=== PATIENT | female | born 1975 | race Caucasian/White ===

== ENCOUNTER → 2019-11-01 | Outpatient (CLI) | payer OTHER ==
[~2019-11-01] MED LIST: ALBU90OI INH; AMOX500 PO; AMOXICILLIN; ANU MED PR; Bactrim Ds Tab1 EACH PO; CEPH500 PO; CODGUAEL PO; HYDACE5; HYDACE5 PO; HYDMOR4 PO; HYDR25SUP PR; IBUP800 PO; MUPI2TO TOP; Miralax17 GM PO; Norco 5-325 Ta1 EACH PO; OXYACE7.5T PO; PROM25 PO; RXOXYACE PO; Veetids 500500 MG PO; Zantac150 MG PO; [UNRECOGNIZED DRUG - OTHER]
[2019-11-02 11:40] LABS: Candida species (DNA Probe) Negative (NEGATIVE); G. vaginalis (DNA Probe) Positive (NEGATIVE); T. vaginalis (DNA Probe) Negative (NEGATIVE)
== END | disposition home or self-care (01) ==
LOC: LAB SHORT 12:10 → LAB 12:10
PROVIDERS: Obstetrics & Gynecology
DX: A59.00 Urogenital trichomoniasis, unspecified (principal)
CPT/HCPCS: 87480; 87510; 87660

== ENCOUNTER 2021-04-20 05:22 | Emergency (ER) | payer OTHER | END 2021-04-20 05:35 | disposition left against medical advice (07) | LOC: ER 05:22 | DX: Z53.21 Procedure and treatment not carried out due to patient leaving prior to being seen by health care provider (principal) ==

== ENCOUNTER → 2021-10-11 | Outpatient (CLI) | payer OTHER ==
[2021-10-12 13:14] LABS: Candida species (DNA Probe) Negative (NEGATIVE); G. vaginalis (DNA Probe) Positive (NEGATIVE); T. vaginalis (DNA Probe) Negative (NEGATIVE)
== END | disposition home or self-care (01) ==
LOC: LAB SHORT 17:28 → LAB 17:28
PROVIDERS: Advanced Practice Midwife
DX: Z01.419 Encounter for gynecological examination (general) (routine) without abnormal findings (principal); Z11.3 Encounter for screening for infections with a predominantly sexual mode of transmission; N76.0 Acute vaginitis
CPT/HCPCS: 87480; 87510; 87660

== ENCOUNTER 2022-05-11 18:37 | Inpatient (IN) | payer OTHER ==
[~2022-05-11] VITALS: Ht 157.5 cm; Wt 73.1 kg
[2022-05-11 19:02] LABS: BASOPHILS ABSOLUTE AUTO 0.06 K/mm3 (0.00-0.23); BASOPHILS PERCENT AUTO 0 % (0-2); EOSINOPHILS ABSOLUTE AUTO 0.07 K/mm3 (0.00-0.68); EOSINOPHILS PERCENT AUTO 1 % (0-6); Hematocrit 39.4 % (33.0-51.0); Hemoglobin 12.9 g/dL (11.5-16.0); IMMATURE GRAN ABSOLUTE AUTO 0.07 K/mm3 (0.00-0.10); IMMATURE GRAN PERCENT AUTO 1 % (0-1); LYMPHOCYTES ABSOLUTE AUTO 1.15 K/mm3 (0.84-5.20); LYMPHOCYTES PERCENT AUTO 8 % (21-46); MONOCYTES ABSOLUTE AUTO 0.84 K/mm3 (0.16-1.47); MONOCYTES PERCENT AUTO 6 % (4-13); Mean Corpuscular HGB 29.7 pg (26.0-34.0); Mean Corpuscular HGB Conc 32.7 g/dL (31.5-36.5); Mean Corpuscular Volume 91 fL (80-100); Mean Platelet Volume 10.2 fL (9.1-12.4); NEUTROPHILS ABSOLUTE AUTO 12.15 K/mm3 (1.96-9.15); NEUTROPHILS PERCENT AUTO 85 % (41-73); Platelet Count 369 K/mm3 (150-400); RDW Coefficient Variation 13.9 % (11.7-14.2); RDW Standard Deviation 46.6 fL (35.1-46.3); Red Blood Cell Count 4.35 M/mm3 (3.80-5.20); White Blood Cell Count 14.34 K/mm3 (4.00-11.30)
[2022-05-11 19:13] LABS: Albumin, Blood 3.4 g/dL (3.4-5.0); Albumin/Globulin Ratio 0.9 (0.8-1.8); Bun/Creatinine Ratio 14.7 (12.0-20.0); Calcium, Blood 8.6 mg/dL (8.5-10.1); Creatinine, Blood 0.54 mg/dL (0.40-1.00); Globulin, Blood 3.7 g/dL (2.2-4.0); Potassium, Blood 3.8 mmol/L (3.5-5.5); Total Protein, Blood 7.1 g/dL (6.4-8.2)
[2022-05-11 20:31] LABS: Source, Urine Clean Catch
[2022-05-11 20:36] LABS: Bilirubin, Urine Neg (Neg); Blood, Urine Neg (Neg); Glucose Qualitative, Urine Neg (Neg); Ketones, Urine 1+ (Neg); Leukocyte Esterase, Urine Neg (Neg); Nitrite, Urine Neg (Neg); Protein, Urine 1+ (Neg); Urobilinogen, Urine NORM (Normal)
[2022-05-11 20:41] LABS: Appearance, Urine Hazy (Clear); Color, Urine Yellow (P-Yellow)
[2022-05-11 20:45] LABS: Amorphous Mod (0-Heavy); Bacteria Few /hpf; Mucus Mod (0-Heavy); Red Blood Cells, Urine Not Seen /hpf (0-2); Squamous Epithelial Cells Mod /hpf (Few); White Blood Cells, Urine Not Seen /hpf (0-5)
--- NOTE | 2022-05-12 05:59 | NUR ---
PT NEW ADMIT THIS SHIFT FROM ER FOR DX OF SEPTIC SHOCK AND COLITIS. PT'S MAP HAS MAINTAINED GREATER THAN 65 WITHOUT NEED TO INITIATE ORDERED LEVOPHED GTT, CALL WAS PLACED TO DR BERNAL AFTER PT ARRIVAL TO DISCUSS PRESSURES, HEART RATE, AND TO CLARIFY FLUID ORDERS, THIRD SALINE BOLUS WAS ORDERED TO BE HELD AND PT WAS MADE PCU STATUS. SHE STATED THAT SHE WAS TIRED AND HUNGRY ON ARRIVAL TO ICU AND REQUESTED TO JUST BE ALLOWED TO SLEEP. SHE IS NOTED TEARFUL ON AWAKENING FOR ASSESSMENTS HOWEVER RATES HER PAIN "FINE" NO NUMBERS ARE PROVIDED WHEN REQUESTED. WILL CONT TO MONITOR AND REPORT OFF TO NEXT SHIFT.
--- NOTE | 2022-05-12 07:45 | NUR ---
INITIAL ASSESSMENT PATIENT SLEEPING UPON ENTERING ROOM. PATIENT ALERT AND ORIENTED X 4, AFEBRILE. DENIES ABD PAIN. NO OTHER COMPLAINTS OF PAIN. PATIENT FLAT AND WITHDRAWN. PATIENT SATTING 90% AND GREATER ON RA. PATIENT IN SR, HR IN THE 70S. BP 111/72. ABD MODERATELY DISTENDED, SOFT, TENDER, WITH NORMOACTIVE BOWEL SOUNDS NOTED. WNL. SKIN WNL. NS INFUSING AT 150 MLS/ HOUR. BED LOW, CALL LIGHT IN REACH. WILL CONTINUE TO MONITOR T/O SHIFT.
[2022-05-12 10:06] LABS: Hematocrit 31.5 % (33.0-51.0); Hemoglobin 10.1 g/dL (11.5-16.0); Mean Corpuscular HGB Conc 32.1 g/dL (31.5-36.5); Mean Corpuscular Volume 94 fL (80-100); Mean Platelet Volume 10.3 fL (9.1-12.4); Platelet Count 287 K/mm3 (150-400); RDW Coefficient Variation 14.2 % (11.7-14.2); RDW Standard Deviation 47.6 fL (35.1-46.3); Red Blood Cell Count 3.37 M/mm3 (3.80-5.20); White Blood Cell Count 6.82 K/mm3 (4.00-11.30)
--- NOTE | 2022-05-12 10:17 | NUR ---
PATIENT HAS REMAINED MOSTLY SLEEPING THIS MORNING. NO COMPLAINTS OF ABD PAIN. VITALS STABLE. PATIENT WILL BE TRANSFERRING TO PCU ROOM 6 SHORTLY.
[2022-05-12 10:23] LABS: Bun/Creatinine Ratio 8.6 (12.0-20.0); Calcium, Blood 7.2 mg/dL (8.5-10.1); Creatinine, Blood 0.58 mg/dL (0.40-1.00); Potassium, Blood 3.4 mmol/L (3.5-5.5)
--- NOTE | 2022-05-12 10:45 | NUR ---
PATIENT SUCCESSFULLY TRANSFERRED TO PCU. ALL BELONGINGS SENT WITH PATIENT.
--- NOTE | 2022-05-12 11:10 | NUR ---
UPDATE ASSUMED CARE. PT ALERT AND ORIENTED X4. HR NSR 70'S. BP LOW SEE VITAL SIGNS. PT SATTING >90% ON RA. PT DENIES ANY PAIN. ABD SOFT, BUT TENDER ON PALPATION. PT STATES SHE IS HUNGRY. PT ABLE TO STAND AND AMBULATE WITH MINIMAL ASSISTANCE TO BATHROOM TO VOID. DR. PARKINSON IN IMMEDIATELY AFTER ARRIVAL TO UNIT. ORDERS TO STOP IV FLUIDS AT THIS TIME AND CLOSELY MONITOR BP. PT'S EYES PUFFY AND SHE STATES SHE "CAN'T HARDLY KEEP OPEN". PT ORIENTED TO NEW ROOM AND UNIT. WILL CONTINUE TO MONITOR CLOSELY
--- NOTE | 2022-05-12 11:30 | NUR ---
UPDATE BP NOTED TO BE SIGNIFICANTLY DIFFERENT BETWEEN LEFT ARM AND RIGHT ARM. BP ON LEFT 75/63, AND BP ON RIGHT ARM IS 104/81. DR. PARKINSON CALLED AND NOTIFIED.
[2022-05-12 11:40] LABS: U Amphetamine Screen DETECTED; U Barbituate Screen Not Detected; U Benzodiazapine Screen Not Detected; U Buprenorphine Screen Not Detected; U Cannabinoids Screen Not Detected; U Cocaine Screen Not Detected; U Methadone Screen Not Detected; U Methamphetamine Screen DETECTED; U Opiates Screen Not Detected; U Oxycodone Screen Not Detected; U Phencyclidine Screen Not Detected; U Propoxyphene Screen Not Detected
--- NOTE | 2022-05-12 14:43 | NUR ---
UPDATE PT YELLING OUT THAT HER ARM IS HURTING WHERE THE POTASSIUM IS INFUSING. PT DEMANDS THIS RN STOPS THE INFUSION. 75ML OF POTASSIUM INFUSED. POTASSIUM DISCONNECTED. PT PROVIDED WARM BLANKET. WILL CONTINUE TO MONITOR
--- NOTE | 2022-05-12 17:13 | NUR ---
SHIFT SUMMARY PT REMAINS ALERT AND ORIENTED X4. VS STABLE. PT DENIES ANY PAIN. PT ABLE TO AMBULATE TO BATHROOM NEEDED WITH SBA. PT ADVANCED TO FULL LIQUIDS AND TOLERATED WELL. PT REQUESTING REGULAR DIET FOR DINNER. WILL CONTINUE TO MONITOR AND REPORT TO ONCOMING PATTY
--- NOTE | 2022-05-13 06:25 | NUR ---
PT SIGNED OUT AMA AT 5:28AM. RISK FACTORS, POSSIBLITY OF EXPLAINED TO PT. SHE STATED SHE WANTED TO LEAVE. DOCTOR MADE AWARE AND SECURITY WALKED PT OUT.
--- NOTE | 2022-05-13 06:52 | NUR ---
PT LEFT AMA PT AGGITATED WITH PRIMARY RN REGARDING PAIN MEDICATION TREATMENT FOR HEMORRHOID PAIN. NOTIFIED REGARDING PT'S PAIN. SEE EMAR FOR ORDERS. PT YELLING SHE IS "LEAVING, NURSING STAFF IS STUPID!" SECURITY CALLED, NURSING EYEWEAR CONSULTANT CALLED, MD NOTIFIED. NURSING EYEWEAR CONSULTANT AND PRIMARY RN REMOVED IV'S. SECURITY IN ROOM DURING THIS TIME. AMA PAPERWORK PROVIDED. PT REFUSED TO SIGN. 2 RN SIGNED. PT INFORMED OF RISKS OF LEAVING AMA AND ENCOURAGED TO STAY TO RECEIVE TREATMENT. PT REFUSING. ESCORTED OUT OF BUILDING BY SECURITY. JOSEPH ARREDONDO.
== END 2022-05-13 06:30 | disposition left against medical advice (07) | DRG 872 ==
LOC: ER 18:37 → ICUW 23:42 → ER 05-12 00:34 → ICUW 05-12 00:34 → PCU 05-12 10:45 → ICUW 05-12 10:45 → PCU 05-13 06:30
PROVIDERS: Internal Medicine; Student in an Organized Health Care Education/Training Program; ADMIT Internal Medicine
DX: A41.9 Sepsis, unspecified organism (principal); R65.20 Severe sepsis without septic shock; K52.89 Other specified noninfective gastroenteritis and colitis; I95.9 Hypotension, unspecified; F15.10 Other stimulant abuse, uncomplicated; F17.210 Nicotine dependence, cigarettes, uncomplicated; E87.6 Hypokalemia; K64.4 Residual hemorrhoidal skin tags; K59.00 Constipation, unspecified; Z98.51 Tubal ligation status; Z98.890 Other specified postprocedural states
CPT/HCPCS: 36415; 74177; 76705; 80048; 80053; 81001; 81025; 82272; 83605; 83690; 85025; 85027; 87040; 93005; 93010; 96361; 96365-59; 96375; 99285-25; A9270; J0696; J1885; J2405; J3010; J3480; J7030; J7050; J7060; Q9967

== ENCOUNTER → 2024-04-15 | Outpatient (CLI) | payer OTHER ==
[~2024-04-15] MED LIST changes: +FEROSUL325 M1 PO; +METR500; +VITAMIN D-32000 UNIT PO
[2024-04-15 14:03] LABS: Source, Urine Clean Catch
[2024-04-15 14:50] LABS: Appearance, Urine Hazy (Clear); Bilirubin, Urine Neg (Neg); Blood, Urine Neg (Neg); Color, Urine Yellow (P-Yellow); Glucose Qualitative, Urine Neg (Neg); Ketones, Urine 1+ (Neg); Leukocyte Esterase, Urine Neg (Neg); Nitrite, Urine Neg (Neg); Protein, Urine 2+ (Neg); Specific Gravity, Urine 1.025 (1.003-1.022); Urobilinogen, Urine NORM (Normal)
[2024-04-15 15:08] LABS: White Blood Cells, Urine 0-2 /hpf (0-5)
[2024-04-15 15:09] LABS: Amorphous Light (0-Heavy); Bacteria Few /hpf; Red Blood Cells, Urine 0-2 /hpf (0-2); Squamous Epithelial Cells Mod /hpf (Few)
[2024-04-16 07:59] LABS: Candida Group, PCR NOT DETECTED (NOT DETECT); Candida glabrata-krusei, PCR NOT DETECTED (NOT DETECT)
[2024-04-16 08:38] LABS: Bacterial Vaginosis PCR Positive (NEGATIVE)
[2024-04-18 06:39] LABS: C. TRACHOMATIS BY TMA,THINPREP Negative (Negative); N. GONORRHOEAE BY TMA,THINPREP Negative (Negative); SPECIMEN SOURCE Cervical
[2024-04-26 09:38] LABS: HPV HIGH RISK BY TMA Not Detected; HPV SOURCE Cervical
== END | disposition home or self-care (01) ==
LOC: LAB 13:59 → LAB SHORT 13:59
PROVIDERS: Obstetrics & Gynecology
DX: Z11.3 Encounter for screening for infections with a predominantly sexual mode of transmission (principal); Z01.419 Encounter for gynecological examination (general) (routine) without abnormal findings; N76.0 Acute vaginitis; R30.0 Dysuria
CPT/HCPCS: 36415; 80053; 81001; 81515; 82728; 83540; 83550; 84443; 85025; 86592; 86803; 87340; 87389; 87491; 87591; 87624; G0123

== ENCOUNTER 2024-10-11 08:55 | Day surgery (SDC) | payer OTHER ==
[~2024-10-11] VITALS: Ht 157.5 cm; Wt 76.5 kg
[2024-10-11] MEDS ORDERED: ATOR10 (10:30)
[2024-10-11] MEDS ORDERED: ZOLOFT50 MG (10:30)
[2024-10-11] MEDS ORDERED: COLACE100 MG (10:30)
[2024-10-11] MEDS ORDERED: NAPROXEN500 MG (10:31)
[2024-10-11 12:09] VITALS: BP 100/71
== END 2024-10-11 12:14 | disposition home or self-care (01) ==
LOC: ORSCSDS 08:55
PROVIDERS: Surgery
PROC: 0DBN8ZX Excision of Sigmoid Colon, Via Natural or Artificial Opening Endoscopic, Diagnostic (ICD-10-PCS; principal; 2024-10-11 10:30)
PROC: 0DB68ZX Excision of Stomach, Via Natural or Artificial Opening Endoscopic, Diagnostic (ICD-10-PCS; principal; 2024-10-11 10:30)
PROC: 0DB48ZX Excision of Esophagogastric Junction, Via Natural or Artificial Opening Endoscopic, Diagnostic (ICD-10-PCS; principal; 2024-10-11 10:30)
DX: K92.1 Melena (principal); K64.4 Residual hemorrhoidal skin tags; K64.8 Other hemorrhoids; K63.5 Polyp of colon; Z86.0100 Personal history of colon polyps, unspecified; K62.89 Other specified diseases of anus and rectum; K29.70 Gastritis, unspecified, without bleeding; K20.90 Esophagitis, unspecified without bleeding; F17.210 Nicotine dependence, cigarettes, uncomplicated; F41.9 Anxiety disorder, unspecified; F32.A Depression, unspecified; E78.5 Hyperlipidemia, unspecified; Z79.899 Other long term (current) drug therapy
CPT/HCPCS: 88305; 88312; 88341; 88342; J2704; J7120

== ENCOUNTER 2024-11-15 06:14 | Day surgery (SDC) | payer OTHER ==
[~2024-11-15] VITALS: Ht 157.5 cm; Wt 75.6 kg
[2024-11-15] VITALS (7 sets, daily range): BP systolic 97–130; BP diastolic 67–85
[~2024-11-15 06:14] MED LIST changes: +ATOR10; +COLACE100 MG; +ESTRADIOL (TWI1 EACH TOP; +NAPR500 PO; +NICOTINE LOZENGE4 MG BC; +Nicoderm Cq1 EAC1 TOP; +OMEP20ER PO; +PROG100 PO; +SERT50 PO
[2024-11-15] MEDS ORDERED: Ampicillin Sod/Sulbactam Sod 3 GM in NS 100 ML IV SCH (06:20)
[2024-11-15] MEDS ORDERED: ATOR10 PO (06:27)
[2024-11-15] MEDS ORDERED: BISA10S (06:27)
[2024-11-15] MEDS ORDERED: Bacitracin Zinc Oint 1GRAM UD Packet ONE (07:16)
[2024-11-15] MEDS ORDERED: Lidocaine 1%-Epineph 1:200000 30 ML SDV ONE ×2 (07:16→08:24)
[2024-11-15] MEDS ORDERED: FentaNYL Citrate 50 MCG/ML 2 ML Injection ONE (07:24)
[2024-11-15] MEDS ORDERED: Ketorolac Tromethamine 30mg Vial ONE (07:25)
[2024-11-15] MEDS ORDERED: Rocuronium Bromide 10 MG/ML 5ML Injection IV ONE (07:25)
[2024-11-15] MEDS ORDERED: Dexamethasone Sod Phos 10 MG/ML 1ML VIAL ONE (07:25)
[2024-11-15] MEDS ORDERED: Ondansetron HCl 2 MG / ML 2ML Vial ONE (07:25)
[2024-11-15] MEDS ORDERED: SuccINYLCHOLINE Chloride 100 MG/5 ML 5MLSYR ONE (07:25)
[2024-11-15] MEDS ORDERED: Sugammadex Sodium 200 MG/2ML SDV (100 MG/ML) ONE (08:29)
[2024-11-15] MEDS ORDERED: OxyCODONE 5 mg/Acetamin 325 mg TABLET PO PRN (08:45)
[2024-11-15] MEDS ORDERED: FentaNYL Citrate 50 MCG/ML 2 ML Injection IV PRN (09:05)
--- NOTE | 2024-11-15 09:39 | NUR ---
0900 RECIEVED PT FROM PACU, AWAKE VSS, HAS DRY CLEAN JOHANNA INPLACE AT RECTUM WITH MADONA PANTS. DENIES NAUSE DENIES PAIN. 09 HAVING PAIN 2/10, MEDICATED, MOTHER AT BEDSIDE
== END 2024-11-15 09:50 | disposition home or self-care (01) ==
LOC: ORSCMMR 06:14 → ORD 07:30 → ORSCMMR 09:50
PROVIDERS: Surgery
PROC: 06BY0ZC Excision of Hemorrhoidal Plexus, Open Approach (ICD-10-PCS; principal; 2024-11-15 07:30)
DX: K64.2 Third degree hemorrhoids (principal); K64.4 Residual hemorrhoidal skin tags; K62.89 Other specified diseases of anus and rectum; K92.1 Melena; Z86.0100 Personal history of colon polyps, unspecified; K21.9 Gastro-esophageal reflux disease without esophagitis; F17.210 Nicotine dependence, cigarettes, uncomplicated; Z79.899 Other long term (current) drug therapy
CPT/HCPCS: 88304; A9270; J0295; J0330; J1100; J1885; J2405; J2704; J3010; J7120

== ENCOUNTER 2025-03-25 22:02 | Inpatient (IN) | payer OTHER ==
[~2025-03-25] VITALS: Ht 157.5 cm; Wt 72.5 kg
[~2025-03-25 22:02] MED LIST changes: +ATOR10 PO; +BISA10S
[2025-03-25 22:16] LABS: BASOPHILS ABSOLUTE AUTO 0.05 K/mm3 (0.00-0.23); BASOPHILS PERCENT AUTO 0 % (0-2); EOSINOPHILS ABSOLUTE AUTO 0.07 K/mm3 (0.00-0.68); EOSINOPHILS PERCENT AUTO 1 % (0-6); Hematocrit 37.9 % (33.0-51.0); Hemoglobin 12.5 g/dL (11.5-16.0); IMMATURE GRAN ABSOLUTE AUTO 0.04 K/mm3 (0.00-0.10); IMMATURE GRAN PERCENT AUTO 0 % (0-1); LYMPHOCYTES ABSOLUTE AUTO 2.13 K/mm3 (0.84-5.20); LYMPHOCYTES PERCENT AUTO 15 % (21-46); MONOCYTES ABSOLUTE AUTO 0.89 K/mm3 (0.16-1.47); MONOCYTES PERCENT AUTO 6 % (4-13); Mean Corpuscular HGB Conc 33.0 g/dL (31.5-36.5); Mean Corpuscular Volume 93 fL (80-100); NEUTROPHILS ABSOLUTE AUTO 10.64 K/mm3 (1.96-9.15); NEUTROPHILS PERCENT AUTO 77 % (41-73); NRBC ABSOLUTE 0.00 K/mm3 (0.00-0.02); NRBC Auto 0.0 /100 WBC (0.0-0.2); Platelet Count 342 K/mm3 (150-400); RDW Coefficient Variation 14.0 % (11.7-14.2); RDW Standard Deviation 47.8 fL (35.1-46.3)
[2025-03-25 22:37] LABS: Alanine Aminotransfer (ALT/SGP 23.0 U/L (12-78); Albumin, Blood 3.2 g/dL (3.4-5.0); Albumin/Globulin Ratio 0.7 (0.8-1.8); Anion Gap 6.0 mmol/L (3-11); Aspartate Aminotrans (AST/SGOT 13.0 U/L (12-37); Bilirubin, Total 0.6 mg/dL (0.1-1.0); Blood Urea Nitrogen 7.0 mg/dL (8-24); CO2, Blood 29.0 mmol/L (21-32); Calcium, Blood 9.2 mg/dL (8.5-10.1); Chloride, Blood 97.0 mmol/L (98-108); Creatinine, Blood 0.64 mg/dL (0.40-1.00); Globulin, Blood 4.3 g/dL (2.2-4.0); Glucose, Blood 111.0 mg/dL (70-99); Potassium, Blood 3.8 mmol/L (3.5-5.5); Sodium, Blood 128.0 mmol/L (136-145); Total Protein, Blood 7.5 g/dL (6.4-8.2)
[2025-03-25] MEDS ORDERED: Morphine Sulfate 4 MG/1 ML Injection IV ONE (23:10)
[2025-03-25] MEDS ORDERED: Ondansetron HCl 2 MG / ML 2ML Vial IV ONE (23:10)
[2025-03-26] MEDS ORDERED: HYDROmorphone HCl/Pf 1MG SYR IV ONE (00:45)
[2025-03-26] MEDS ORDERED: Diazepam 5 MG / ML 2ML SYR IV ONE (01:50)
[2025-03-26] MEDS ORDERED: CefTRIAXone Sodium 1,000 MG in NS 100 ML IV ONE (01:50)
[2025-03-26 02:11] LABS: Source, Urine Clean Catch
[2025-03-26 02:22] LABS: Bilirubin, Urine Neg (Neg); Glucose Qualitative, Urine Neg (Neg); Ketones, Urine Neg (Neg); Leukocyte Esterase, Urine Neg (Neg); Protein, Urine 1+ (Neg); Specific Gravity, Urine 1.015 (1.003-1.022); Urobilinogen, Urine NORM (Normal)
[2025-03-26 02:32] LABS: Prothrombin Time Results 10.6 Sec (9.7-11.5)
[2025-03-26 02:49] LABS: Color, Urine Pale Yellow (P-Yellow)
[2025-03-26] MEDS ORDERED: FLU VACC TS2025-26(6MOS UP)/PF 45 MCG/0.5 ML SYRINGE IM SCH (02:55)
[2025-03-26] MEDS ORDERED: Ondansetron HCl 2 MG / ML 2ML Vial IV PRN (02:55)
[2025-03-26] MEDS ORDERED: HYDROmorphone HCl/Pf 1MG SYR IV PRN ×2 (03:00→11:40)
[2025-03-26] MEDS ORDERED: NS 1,000 ML IV SCH (03:00)
[2025-03-26] MEDS ORDERED: Naloxone HCl 0.4MG / ML 1ML Vial IV PRN (03:00)
[2025-03-26 03:06] LABS: U Amphetamine Screen DETECTED; U Barbiturate Screen Not Detected; U Benzodiazapine Screen Not Detected; U Buprenorphine Screen Not Detected; U Cannabinoids Screen Not Detected; U Cocaine Screen Not Detected; U Methadone Screen Not Detected; U Methamphetamine Screen DETECTED; U Opiates Screen DETECTED; U Oxycodone Screen Not Detected; U Phencyclidine Screen Not Detected
[2025-03-26 05:09] VITALS: BP 79/62
--- NOTE | 2025-03-26 06:25 | NUR ---
SHIFT SUMMARY/ ADMIT NOTE PATIENT ADMITTED WITH INTRACTABLE PAIN. PATIENT WAS BROUGHT UP VIA GURNEY AND SLIDE TRANSFERRED TO BED. PATIENT WAS LETHARGIC AND ONLY OPENED EYES FOR A SHORT MINUTE. BLOOD PRESSURE VIA MONITOR WAS READING LOW, MANUAL BLOOD PRESSURE WAS TAKEN AND SYSTOLIC BP WAS READING IN THE 90'S. PATIENT ASYMPTOMATIC FOR HYPOTENSION. FLUIDS RUNNING AT 100MLS PER HOUR. PATIENT ORIENTED X4. ALERT TO VERBAL STIMULI. PATIENT 1 PERSON TRANFER WITH WALKER TO BATHROOM. PATIENT THRASHING IN BED WHEN BECOMING IN PAIN OR NEEDING TO VOID. PATIENT APPEARS TO USE CALL LIGHT APPROPRIATELY AT THIS TIME. BED RAILS UP X2. BED ALARM ON FOR SAFETY. BED IN LOWEST POSITION FOR SAFETY. CALL LIGHT WITHIN REACH
[2025-03-26 07:37] VITALS: BP 95/75
[2025-03-26] MEDS ORDERED: Enoxaparin 40 MG/0.4 ML SYR SC SCH (09:00)
[2025-03-26] MEDS ORDERED: Lactobacil 2-S.Thermo-Bifido 1 1 Cap PO SCH (09:00)
[2025-03-26 11:25] VITALS: BP 90/68
[2025-03-26] MEDS ORDERED: Ketorolac Tromethamine 15mg Vial IV PRN (12:35)
[2025-03-26 17:08] VITALS: BP 95/59
[2025-03-26 19:28] VITALS: BP 94/56
[2025-03-26] MEDS ORDERED: CefTRIAXone Sodium 1,000 MG in NS 100 ML IV SCH (21:00)
[2025-03-26 21:07] LABS: pH Blood Venous 7.38 (7.34-7.37)
[2025-03-26 21:28] LABS: BASOPHILS ABSOLUTE AUTO 0.04 K/mm3 (0.00-0.23); BASOPHILS PERCENT AUTO 0 % (0-2); EOSINOPHILS ABSOLUTE AUTO 0.07 K/mm3 (0.00-0.68); EOSINOPHILS PERCENT AUTO 1 % (0-6); Hematocrit 35.0 % (33.0-51.0); Hemoglobin 11.3 g/dL (11.5-16.0); IMMATURE GRAN ABSOLUTE AUTO 0.04 K/mm3 (0.00-0.10); IMMATURE GRAN PERCENT AUTO 0 % (0-1); LYMPHOCYTES ABSOLUTE AUTO 1.81 K/mm3 (0.84-5.20); LYMPHOCYTES PERCENT AUTO 12 % (21-46); MONOCYTES ABSOLUTE AUTO 1.11 K/mm3 (0.16-1.47); MONOCYTES PERCENT AUTO 8 % (4-13); Mean Corpuscular HGB Conc 32.3 g/dL (31.5-36.5); Mean Corpuscular Volume 94 fL (80-100); NEUTROPHILS ABSOLUTE AUTO 11.47 K/mm3 (1.96-9.15); NEUTROPHILS PERCENT AUTO 79 % (41-73); NRBC ABSOLUTE 0.00 K/mm3 (0.00-0.02); NRBC Auto 0.0 /100 WBC (0.0-0.2); Platelet Count 289 K/mm3 (150-400); RDW Coefficient Variation 13.9 % (11.7-14.2); RDW Standard Deviation 48.2 fL (35.1-46.3)
[2025-03-26 21:57] LABS: Alanine Aminotransfer (ALT/SGP 17 U/L (12-78); Albumin, Blood 3.1 g/dL (3.4-5.0); Albumin/Globulin Ratio 0.8 (0.8-1.8); Anion Gap 8 mmol/L (3-11); Aspartate Aminotrans (AST/SGOT 9 U/L (12-37); Bilirubin, Total 1.2 mg/dL (0.1-1.0); Blood Urea Nitrogen 7 mg/dL (8-24); CO2, Blood 26 mmol/L (21-32); Calcium, Blood 8.7 mg/dL (8.5-10.1); Chloride, Blood 101 mmol/L (98-108); Creatinine, Blood 0.60 mg/dL (0.40-1.00); Ethanol (Alcohol), Blood, Med <3 mg/dL; Globulin, Blood 3.7 g/dL (2.2-4.0); Glucose, Blood 115 mg/dL (70-99); Potassium, Blood 3.2 mmol/L (3.5-5.5); Sodium, Blood 132 mmol/L (136-145); Thyroid Stimulating Hormone 0.466 uIU/mL (0.360-4.800); Total Protein, Blood 6.8 g/dL (6.4-8.2)
[2025-03-26] MEDS ORDERED: Ketorolac Tromethamine 15mg Vial IV ONE (23:10)
--- NOTE | 2025-03-27 01:32 | NUR ---
CALLED HOSPITALIST HOSPITALIST CALLED DUE TO PATIENT COMPLAINING OF SEVERE PAIN STATING "IM UNCOMFORTABLE, IT HURTS, IT HURTS." PATIENT STATES SHE HAS BEEN CALLING FOR HELP AND NO ONE IS COMING ALTHOUGH CALL LIGHT HAS NOT GONE OFF. PATIENT CONTINUOUSLY MOVING AROUND ROOM AND AT ONE POINT WAS FOUND ON THE GROUND IN FRONT OF HER RECLINER IN THE POSITION. HOPSITALIST WAS CALLED TO REQUEST SOMETHING FOR PAIN NOTHING WAS AVAILABLE UNTIL 0030. EXTRA DOSE OF TORADOL 15MG ORDERED AND GIVEN AT 2341 HOURS WITH LITTLE RELIEF. SECOND CALL WAS PLACED TO THE HOSPITALIST WELL DISCUSSION WITH THE CHARGE NURSE OF POSSIBLE SOLUTIONS. SEROQUEL WAS NOTED TO BE STARTED TOMORROW AT 2100. WE REQUESTED TO START THE SEROQUEL TONIGHT. ORDER WAS ADDED. PATIENT WAS GIVEN OXYCODONE 5MG, ACETAMINOPHEN 650MG, AND A DOSE OF SEROQUEL 25MG AT 0036. AT 0130 PATIENT STILL COMPLAINING OF PAIN AND CALLING OUT. PATIENT HAS REMOVED TELE AT THIS TIME AND CONTINUOUS PULSE OX AND IS REFUSING TO PUT THEM BACK ON AT THIS TIME STATING "IT ONLY FELT BETTER WHEN I TOOK THEM OFF." BED IN LOWEST POSITION FOR SAFETY, CALL LIGHT WITHIN REACH OF RECLINER AND BED DUE TO PATIENT CONTINUOUSLY MOVING AROUND THE ROOM.
--- NOTE | 2025-03-27 06:38 | NUR ---
SHIFT SUMMARY PATIENT ADMITTED FOR INTRACTABLE PAIN. PATIENT ALERT TO VERBAL STIMULI AND ORIENTED X4. PATIENT INCOOPERATIVE WITH CARE REFUSING VITALS AND HAVING A DIFFICULT TIME WITH LAB DRAW. PATIENT BECAME AGITATED DURING THE NIGHT STATING YOU HAVE TO FIX IT, YOU RE JUST LOADING ME UP WITH PAIN MEDICATION AND NOT FIXING IT. PATIENT WAS FOUND ON THE FLOOR AT THE TIME OF THE LAB DRAW. PARTS COUNTER SALESPERSON STAFF AND LAB WERE AT THE DOOR WHILE THE PATIENT PLACED HERSELF ON THE FLOOR TO SLEEP. THIS NURSE AND CHARGE NURSE EDUCATED THIS PATIENT ABOUT THE NEED TO SLEEP IN BED OR IN RECLINER AND NOT ON THE FLOOR, PATIENT BECAME AGITATED MUMBLING UNINTELLIGIBLE WORDS. PATIENT MEDICATED PER EMAR FOR PAIN. PATIENT CONSISTENTLY MOVES THROUGHOUT THE ROOM TO RECLINER, FLOOR, AND BED. BED IN LOWEST POSITION. CALL LIGHT REPOSITIONED TO BE WITHIN REACH ANYTIME STAFF ENTERS THE ROOM. FREQUENT CHECKS PERFORMED TO ENSURE NEEDS ARE MET.
[2025-03-27 07:09] LABS: BASOPHILS ABSOLUTE AUTO 0.04 K/mm3 (0.00-0.23); BASOPHILS PERCENT AUTO 0 % (0-2); EOSINOPHILS ABSOLUTE AUTO 0.06 K/mm3 (0.00-0.68); EOSINOPHILS PERCENT AUTO 1 % (0-6); Hematocrit 33.1 % (33.0-51.0); Hemoglobin 10.7 g/dL (11.5-16.0); IMMATURE GRAN ABSOLUTE AUTO 0.05 K/mm3 (0.00-0.10); IMMATURE GRAN PERCENT AUTO 0 % (0-1); LYMPHOCYTES ABSOLUTE AUTO 1.74 K/mm3 (0.84-5.20); LYMPHOCYTES PERCENT AUTO 14 % (21-46); MONOCYTES ABSOLUTE AUTO 1.47 K/mm3 (0.16-1.47); MONOCYTES PERCENT AUTO 12 % (4-13); Mean Corpuscular HGB Conc 32.3 g/dL (31.5-36.5); Mean Corpuscular Volume 95 fL (80-100); NEUTROPHILS ABSOLUTE AUTO 9.35 K/mm3 (1.96-9.15); NEUTROPHILS PERCENT AUTO 74 % (41-73); NRBC ABSOLUTE 0.00 K/mm3 (0.00-0.02); NRBC Auto 0.0 /100 WBC (0.0-0.2); Platelet Count 284 K/mm3 (150-400); RDW Coefficient Variation 14.0 % (11.7-14.2); RDW Standard Deviation 47.9 fL (35.1-46.3)
[2025-03-27 07:38] LABS: Influenza A/2009-H1 Not Detected (NOT DETECT); SARS-Cov-2 (COVID-19), BioFire Not Detected (NOT DETECT)
[2025-03-27 07:44] LABS: Alanine Aminotransfer (ALT/SGP 18.0 U/L (12-78); Albumin, Blood 2.9 g/dL (3.4-5.0); Albumin/Globulin Ratio 0.8 (0.8-1.8); Anion Gap 9.0 mmol/L (3-11); Aspartate Aminotrans (AST/SGOT 10.0 U/L (12-37); Bilirubin, Total 1.0 mg/dL (0.1-1.0); Blood Urea Nitrogen 8.0 mg/dL (8-24); CO2, Blood 27.0 mmol/L (21-32); Calcium, Blood 8.5 mg/dL (8.5-10.1); Chloride, Blood 104.0 mmol/L (98-108); Creatinine, Blood 0.6 mg/dL (0.40-1.00); Globulin, Blood 3.5 g/dL (2.2-4.0); Glucose, Blood 92.0 mg/dL (70-99); Magnesium, Blood 2.0 mg/dL (1.6-2.4); Phosphorus, Blood 3.8 mg/dL (2.5-4.9); Potassium, Blood 4.2 mmol/L (3.5-5.5); Sodium, Blood 136.0 mmol/L (136-145); Total Protein, Blood 6.4 g/dL (6.4-8.2)
[2025-03-27] MEDS ORDERED: Cholecalciferol 1000 Unit Tablet (=25MCG) PO SCH (09:00)
--- NOTE | 2025-03-27 10:46 | NUR ---
ASSUMPTION OF CARE: ASSUMED CARE OF PATIENT. ASLEEP DURING SHIFT CHANGE REPORT. LYING IN BED ON LEFT SIDE WITH LEGS PULLED UP TO CHEST. BREATHING EVEN AND UNLABORED c ROOM AIR. TELE DCd DURING BIOMED TECH D/T PT INABILITY TO TOLERATE. LABORED, PURSED-LIP BREATHING UP ON AWAKENING, GRABBING AT LEFT CHEST BENEATH BREAST STATING "OW" AND "IT HURTS". PAIN MEDS PER EMR. BED IN LOWEST POSITION. CALL LIGHT WITHIN REACH. ACUTE NEEDS MET.
[2025-03-27 15:50] VITALS: BP 107/58
--- NOTE | 2025-03-27 17:36 | NUR ---
END OF SHIFT SUMMARY: A&Ox4. NONCOMPLIANT WITH CARE THIS MORNING BUT IMPROVED T/O DAY. CALLS APPROPRIATELY AND IS ABLE TO ADVOCATE NEEDS EFFECTIVELY, AGAIN, M[place] THIS AFTERNOON THAN IN THE MORNING HOURS. VS INITIALLY REFUSED, BUT ALLOWED THEM TO BE OBTAINED THIS AFTERNOON; VSS AND AFEBRILE. BREATHING EVEN AND UNLABORED c RA AT REST AND BECOMES MORE LABORED c MOVEMENT D/T PAIN. CONTINENT OF BOWEL AND BLADDER; UNKNOWN WHEN LBM AND REPORTS CONSTIPATION BEING A LIFELONG ISSUE FOR HER. CHANGED TO REGULAR DIET AND TOLERATING WELL s N/V. AMBULATES INDEPENDENTLY. MEDS WHOLE c FLUIDS. DECLINED TO WEAR SCDs; EDUCATION PROVIDED AND VOICES UNDERSTANDING OF RISKS. WORKED c PT. CORTEZ Burroughs. ORDERS FOR PREGABALIN AND NICOTINE PATCH. MORE AWAKE AND BETTER HISTORIAN THIS AFTERNOON: STATED SHE HAD BEEN LIFTING A SCOOTER UP INTO A TRUCK BED A FEW HOURS BEFORE ONSET OF PAIN. BED IN LOWEST POSITION, CALL LIGHT WITHIN REACH, ALL NEEDS MET. REPORT TO ONCOMING NURSE.
[2025-03-27 19:35] VITALS: BP 104/72
[2025-03-27] MEDS ORDERED: Lidocaine 4% 1 Patch TOP SCH (22:15)
[2025-03-27] MEDS ORDERED: Magnesium Hydroxide Conc 10 ML UDC PO ONE (22:20)
[2025-03-28 04:34] VITALS: BP 129/84
[2025-03-28 05:56] LABS: BASOPHILS ABSOLUTE AUTO 0.04 K/mm3 (0.00-0.23); BASOPHILS PERCENT AUTO 0 % (0-2); EOSINOPHILS ABSOLUTE AUTO 0.08 K/mm3 (0.00-0.68); EOSINOPHILS PERCENT AUTO 1 % (0-6); Hematocrit 36.6 % (33.0-51.0); Hemoglobin 12.1 g/dL (11.5-16.0); IMMATURE GRAN ABSOLUTE AUTO 0.05 K/mm3 (0.00-0.10); IMMATURE GRAN PERCENT AUTO 1 % (0-1); LYMPHOCYTES ABSOLUTE AUTO 1.39 K/mm3 (0.84-5.20); LYMPHOCYTES PERCENT AUTO 15 % (21-46); MONOCYTES ABSOLUTE AUTO 1.04 K/mm3 (0.16-1.47); MONOCYTES PERCENT AUTO 11 % (4-13); Mean Corpuscular HGB Conc 33.1 g/dL (31.5-36.5); Mean Corpuscular Volume 93 fL (80-100); NEUTROPHILS ABSOLUTE AUTO 6.61 K/mm3 (1.96-9.15); NEUTROPHILS PERCENT AUTO 72 % (41-73); NRBC ABSOLUTE 0.00 K/mm3 (0.00-0.02); NRBC Auto 0.0 /100 WBC (0.0-0.2); Platelet Count 229 K/mm3 (150-400); RDW Coefficient Variation 14.0 % (11.7-14.2); RDW Standard Deviation 47.8 fL (35.1-46.3)
[2025-03-28 06:01] LABS: Alanine Aminotransfer (ALT/SGP 23.0 U/L (12-78); Albumin, Blood 2.6 g/dL (3.4-5.0); Albumin/Globulin Ratio 0.7 (0.8-1.8); Anion Gap 10.0 mmol/L (3-11); Aspartate Aminotrans (AST/SGOT 12.0 U/L (12-37); Bilirubin, Total 0.6 mg/dL (0.1-1.0); Blood Urea Nitrogen 8.0 mg/dL (8-24); CO2, Blood 27.0 mmol/L (21-32); Calcium, Blood 8.6 mg/dL (8.5-10.1); Chloride, Blood 105.0 mmol/L (98-108); Creatinine, Blood 0.65 mg/dL (0.40-1.00); Globulin, Blood 3.9 g/dL (2.2-4.0); Glucose, Blood 119.0 mg/dL (70-99); Potassium, Blood 3.9 mmol/L (3.5-5.5); Sodium, Blood 138.0 mmol/L (136-145); Total Protein, Blood 6.5 g/dL (6.4-8.2)
--- NOTE | 2025-03-28 06:03 | NUR ---
SHIFT SUMMARY REPORTEDLY MUCH IMPROVED PAIN PER PATIENT OVERNIGHT, INCLUDING L ABDOMEN/FLANK, L TRAPEZIAL NECK, MUSCULAR PAIN BENEATH L LOWER BREAST, AND CHRONIC LOW BACK PAIN. PROVIDER ADDED ON LIDOCAINE 4% PATCH. PLACED EGG CRATE MATTRESS TOPPER WITH GOOD EFFECT. PT INDEPENDENT IN ROOM, A&OX4. LAC IV. TOLERATED ADDED ON LYRICA FOR PROVIDER-SUSPECTED FIBROMYALGIA WELL WITH QUICKLY NOTED IMPROVEMENT IN PAIN, AND ALSO DEVELOPED DROWSINESS RELATED TO THIS MEDICATION. NICOTINE PATCH FELL OFF L SHOULDER DURING SHOWER 03/27 AROUND 10 PM. INCREASED BOWEL CARE DUE TO NO BM SINCE BEFORE 03/23.
[2025-03-28 07:48] VITALS: BP 123/72
[2025-03-28] MEDS ORDERED: Polyethylene Glycol 3350 17 gm PO SCH (09:00)
[2025-03-28] MEDS ORDERED: AMOCLA875 PO (11:11)
[2025-03-28] MEDS ORDERED: PREG75 PO (11:12)
[2025-03-28] MEDS ORDERED: CELE100 PO (11:12)
[2025-03-28] MEDS ORDERED: VALACYCLOVIR1000 MG PO (11:13)
--- NOTE | 2025-03-28 12:00 | NUR ---
PATIENT DC'D TO HOME WITH FAMILY. DC INSTRUCTIONS AND EDUCATION DISCUSSED WITH PATIENT AND COPY PROVIDED. RX MEDICATIONS FAXED TO [facility]. PATIENT DENIES ANY FURTHER QUESTIONS OR CONCERNS.
== END 2025-03-28 12:00 | disposition home or self-care (01) | DRG 193 ==
LOC: ER 22:02 → MEDS 22:03 → ENPENDDIS 03-28 10:53 → MEDS 03-28 12:00
PROVIDERS: Emergency Medicine; Family Medicine; Internal Medicine; Student in an Organized Health Care Education/Training Program; ADMIT Student in an Organized Health Care Education/Training Program
DX: J18.9 Pneumonia, unspecified organism (principal); G92.8 Other toxic encephalopathy; E87.1 Hypo-osmolality and hyponatremia; K56.7 Ileus, unspecified; F17.210 Nicotine dependence, cigarettes, uncomplicated; E78.5 Hyperlipidemia, unspecified; K21.9 Gastro-esophageal reflux disease without esophagitis; R00.0 Tachycardia, unspecified; G89.29 Other chronic pain; M54.50 Low back pain, unspecified; M81.0 Age-related osteoporosis without current pathological fracture; R45.1 Restlessness and agitation; E66.9 Obesity, unspecified; F15.10 Other stimulant abuse, uncomplicated; K59.09 Other constipation; Z90.89 Acquired absence of other organs; Z98.51 Tubal ligation status; Z79.899 Other long term (current) drug therapy; Z88.8 Allergy status to other drugs, medicaments and biological substances
CPT/HCPCS: 0202U; 36415; 71046; 71260; 74177; 80053; 80320; 81025; 82306; 82803; 83690; 83735; 84100; 84145; 84443; 84484; 85025; 85610; 85730; 93005; 93010; 93306; 94762; 96361; 96374-59; 96375; 96376; 97162; 97530; 99285-25; A9270; G0378; J0696; J1171; J1650; J1885; J2270; J2405; J3360; J7030; J7120; Q9967